=== PATIENT | male | born 1990 | race Caucasian/White ===

== ENCOUNTER 2017-11-19 09:49 | Emergency (ER) | payer OTHER ==
[2017-11-19 09:59] VITALS: RESP 16
--- NOTE | 2017-11-19 10:14 | EDPHY ---
H & P Stated Complaint: L face swelling/pain Time Seen by Provider: 11/19/17 09:59 HPI/ROS: CHIEF COMPLAINT: Left facial swelling, odontalgia HISTORY OF PRESENT ILLNESS: 27-year-old immunocompetent male visiting from [place], returning in 3 days, complaining of pain to tooth 9, 10 which started yesterday and today he noticed soft tissue swelling to the left face. He went to an urgent care yesterday. Was given instructions about possible sinusitis. He denies flu-like symptoms, denies URI symptoms. Denies cough. Denies sore throat. Denies change in voice. Denies trismus or drooling. Denies nuchal rigidity. PRIMARY CARE PROVIDER: REVIEW OF SYSTEMS: A ten point review of systems was performed and is negative with the exception of the items mentioned in the HPI PAST MEDICAL & SURGICAL HISTORY: No pertinent medical or surgical history SOCIAL HISTORY: Visiting from [place] PHYSICAL EXAM (Prior to examination, patient consented to physical exam, hands were washed and my usual and customary physical exam procedures followed) 1) GENERAL: Well-developed, well-nourished, alert and oriented. Appears to be in no acute distress. Nontoxic-appearing 2) HEAD: Normocephalic, atraumatic 3) HEENT: Pupils equal, round, reactive to light bilaterally. Sclera anicteric. Extraocular movements are intact not elicit abnormal gaze, no diplopia with with extraocular movements.. Nasopharynx: Clear. Oropharynx: Tender to percussion tooth 9, 10. No evidence of apical abscess. There is blunting of the nasolabial fold on the left. Floor of mouth soft with no induration, no tenderness. No evidence of David's angina. There is no facial crepitus. Ears bilaterally with normal tympanic membranes. 4) NECK: Full range of motion, no meningeal signs. No adenopathy. No submental or submandibular adenopathy or induration. 5) LUNGS: Breathing comfortably - Personal History Current Tetanus/Diphtheria Vaccine: Unsure Current Tetanus Diphtheria and Acellular Pertussis (TDAP): Unsure - Medical/Surgical History Hx Asthma: No Hx Chronic Respiratory Disease: No Hx Diabetes: No Hx Cardiac Disease: No Hx Renal Disease: No Hx Cirrhosis: No Hx Alcoholism: No Hx HIV/AIDS: No Hx Splenectomy or Spleen Trauma: No Other PMH: denies - Social History Smoking Status: Current every day smoker Constitutional: Initial Vital Signs Temperature (C) 37 C 11/19/17 09:57 Heart Rate 71 11/19/17 09:57 Respiratory Rate 16 11/19/17 09:57 Blood Pressure 170/126 H 11/19/17 09:57 O2 Sat (%) 96 11/19/17 09:57 O2 Delivery Mode Room Air Allergies/Adverse Reactions: No Known Allergies Allergy (Unverified 11/19/17 09:55) Home Medications: Medication Instructions Recorded Acetaminophen 11/19/17 Amoxicillin/Clavulanate Pot 875 mg PO BID #14 tab 11/19/17 [Augmentin 875 mg tab] Guaifenesin 11/19/17 Hydrocodone/APAP 5/325 [Carmen 1 tab PO Q6 PRN #10 tab 11/19/17 5/325 (RX)] Medical Decision Making ED Course/Re-evaluation: At this time I think that deep space infection of the face, necrotizing fasciitis, less than likely this patient. I have recommended initiation of antibiotic therapy. He is started on Augmentin, analgesia. Have given him dental and ENT follow-up information. He may also have follow-up with dentist or ENT in [place]. He feels comfortable being discharged. All questions and concerns addressed by myself. Usual and customary discharge precautions instructions provided. Care of patient under supervision of secondary supervising physician Dr Lopez . Differential Diagnosis: In no particular order including but not limited to Ludwigs Angina, deep space infection, odontogenic infection, apical abscess, facial abscess, necrotizing fasciitis of the face Departure - Departure Disposition: Home, Routine, Self-Care Clinical Impression: Facial swelling Condition: Good Instructions: Toothache (ED) Additional Instructions: Return to the ER immediately if you develop fevers, inability to swallow, worsening facial swelling, change in vision, or any other symptoms that concern you. Referrals: Sylvia Owen MD [Medical Doctor] - 1 day without fail (Dr Owen is an oral surgeon) Pancho Raman MD [Medical Doctor] - 1 day without fail (Dr. Pancho Raman is an ear nose and throat doctor) Prescriptions: Amoxicillin/Clavulanate Pot [Augmentin 875 mg tab] 875 mg PO BID #14 tab Hydrocodone/APAP 5/325 [Carmen 5/325 (RX)] 1 tab PO Q6 PRN #10 tab PRN Reason: Pain, Severe
[2017-11-19 10:31] VITALS: BP 162/107; PULSE 78; TEMP 98.2; O2SAT 95
== END 2017-11-19 10:36 | disposition home or self-care (01) ==
DX: R22.0 Localized swelling, mass and lump, head (principal); F17.200 Nicotine dependence, unspecified, uncomplicated